=== PATIENT | female | born 2005 | race Two or more races ===

== ENCOUNTER 2023-05-10 13:34 | Emergency (ER) | payer OTHER ==
[~2023-05-10] VITALS: Ht 154.9 cm; Wt 63.5 kg
[2023-05-10 16:30] VITALS: BP 94/56; TEMP 98.4; O2SAT 100
== END 2023-05-10 16:31 | disposition home or self-care (01) ==
LOC: ER 13:47
DX: T19.2XXA Foreign body in vulva and vagina, initial encounter (principal); W44.9XXA Unspecified foreign body entering into or through a natural orifice, initial encounter
CPT/HCPCS: 76856-TC